=== PATIENT | female | born 1955 | race Caucasian/White ===

== ENCOUNTER 2017-11-28 14:42 | Observation (INO) | payer MEDICARE ==
[2017-11-28] MEDS ORDERED: HEPARIN SODIUM,PORCINE 5,000 UNIT/ML 1 ML VIAL IV ONE (15:10)
[2017-11-28] MEDS ORDERED: NITROGLYCERIN OINT 1 INCH/GM PACKET TOPICAL STA (15:12)
--- NOTE | 2017-11-28 15:15 | ED ---
General Adult HPI - General Chief complaint: Recheck/Abnormal Lab/Rx Stated complaint: Arm numbness Time Seen by Provider: 11/28/17 14:45 Source: patient, EMS, RN notes reviewed Mode of arrival: EMS Limitations: no limitations - History of Present Illness Initial comments: This is a 62-year-old female presents emergency Department complaining of left shoulder pain and tingling going down the right arm. Patient saw her primary medical care doctor yesterday and was told to go to the emergency department she did not go to the emergency department until today. Patient was worked up at [facility] they wanted to transfer the patient here. Patient states in the last few hours she has had some chest heaviness. Patient denies any shortness of breath patient denies any diaphoresis or nausea. Patient states she does have some epigastric fullness which is unusual for her. Patient states she is hypertensive and has high cholesterol. Patient states she also smokes. Patient is currently chest pain-free - Related Data Home Medications Medication Instructions Recorded Confirmed Atorvastatin [Lipitor] 20 mg PO DAILY 11/28/17 11/28/17 Cholecalciferol [Vitamin D3] 1,000 unit PO BID 11/28/17 11/28/17 Gabapentin [Neurontin] 600 mg PO TID 11/28/17 11/28/17 HYDROcodone/APAP 10-325MG [[place] 1 tab PO Q4-6H PRN 11/28/17 11/28/17 10-325] Lisinopril-Hctz 20-25 mg 1 tab PO DAILY 11/28/17 11/28/17 [Zestoretic 20-25] Magnesium 200 mg PO DAILY 11/28/17 11/28/17 Meloxicam [Mobic] 15 mg PO DAILY 11/28/17 11/28/17 Potassium 99 mg PO DAILY 11/28/17 11/28/17 Allergies Allergy/AdvReac Type Severity Reaction Status Date / Time No Known Allergies Allergy Verified 11/28/17 14:43 Review of Systems ROS Statement: Those systems with pertinent positive or pertinent negative responses have been documented in the HPI. ROS Other: All systems not noted in ROS Statement are negative. Past Medical History Past Medical History: COPD, Hyperlipidemia, Hypertension Additional Past Medical History / Comment(s): Arthritis, back pain History of Any Multi-Drug Resistant Organisms: None Reported Past Surgical History: Appendectomy, Bladder Surgery, Tubal Ligation Past Psychological History: No Psychological Hx Reported Smoking Status: Current every day smoker Past Alcohol Use History: None Reported Past Drug Use History: None Reported General Exam - General Exam Comments Initial Comments: GENERAL: Patient is well-developed and well-nourished. Patient is nontoxic and well- hydrated and is in mild distress. ENT: Neck is soft and supple. No significant lymphadenopathy is noted. Oropharynx is clear. Moist mucous membranes. Neck has full range of motion without eliciting any pain. EYES: The sclera were anicteric and conjunctiva were pink and moist. Extraocular movements were intact and pupils were equal round and reactive to light. Eyelids were unremarkable. PULMONARY: Unlabored respirations. Good breath sounds bilaterally. No audible rales rhonchi or wheezing was noted. CARDIOVASCULAR: There is a regular rate and rhythm without any murmurs gallops or rubs. ABDOMEN: Soft and nontender with normal bowel sounds. No palpable organomegaly was noted. There is no palpable pulsatile mass. SKIN: Skin is clear with no lesions or rashes and otherwise unremarkable. NEUROLOGIC: Patient is alert and oriented x3. Cranial nerves II through XII are grossly intact. Motor and sensory are also intact. Normal speech, volume and content. Symmetrical smile. MUSCULOSKELETAL: Normal extremities with adequate strength and full range of motion. No lower extremity swelling or edema. No calf tenderness. LYMPHATICS: No significant lymphadenopathy is noted PSYCHIATRIC: Normal psychiatric evaluation. Normal interpersonal interactions appears functionally intact in deals appropriately with others. No signs of depression. No signs of anxiety. Limitations: no limitations Course Vital Signs 11/28/17 11/28/17 14:43 16:06 Temperature 98.3 F Pulse Rate 80 72 Respiratory 18 18 Rate Blood Pressure 116/65 95/52 O2 Sat by Pulse 93 L 95 Oximetry Medical Decision Making - Medical Decision Making EKG shows a normal sinus rhythm at 70 bpm HI interval is 170 [place] is 88 QT interval 390 QTC is 444. Patient's EKG shows no ST segment elevation or depression or T wave abnormalities are noted. I reviewed the patient's chest x-ray from the other hospital showed no acute abnormality. I repeated the troponin troponin was normal. Patient was chest pain-free at this time. I spoke with Dr. Lisa I admitted the patient I continue the heparin for the aspirin before and the Nitropaste on the floor. I consult to cardiology. - Lab Data Lab Results 11/28/17 Range/Units 15:18 Troponin I <0.012 (0.000-0.034) ng/mL Disposition Clinical Impression: Unstable angina, Right shoulder pain Disposition: ADMITTED IP TO THIS HOSP Referrals: Danilo Cote MD [Primary Care Provider] - 1-2 days Time of Disposition: 16:19
[2017-11-28] MEDS: HEPARIN SOD,PORK IN 0.45% NACL 25,000 UNIT in 0.45% NACL 1 500ML.BAG IV SCH (15:30)
[2017-11-28] MEDS ORDERED: HYDROcodone/APAP 10-325MG 1 EACH TAB PO ONE (15:44)
[2017-11-28] MEDS ORDERED: GABAPENTIN 300 MG CAP PO STA (15:45)
[2017-11-28] MEDS ORDERED: NITROGLYCERIN SL TABS 0.4 MG TAB SUBLINGUAL PRN (16:20)
[2017-11-28] MEDS ORDERED: SODIUM CHLORIDE 0.9% 500 ML IV STA (16:46)
[2017-11-28] MEDS: NITROGLYCERIN OINT 1 INCH/GM PACKET TOPICAL SCH (18:12)
[2017-11-28] MEDS ORDERED: SODIUM CHLORIDE 0.9% 1,000 ML IV ONE (18:48)
[2017-11-28] MEDS ORDERED: SODIUM CHLORIDE 0.9% 500 ML IV ONE (18:48)
--- NOTE | 2017-11-28 19:07 | XR ---
EXAMINATION TYPE: XR chest 2V DATE OF EXAM: 11/28/2017 COMPARISON: Outside chest x-ray earlier today HISTORY: Right arm and shoulder pain with hypotension and numbness. TECHNIQUE: Frontal and lateral views of the chest are obtained. FINDINGS: There is chronic parenchymal change without suspicious focal air space opacity, pleural ef fusion, or pneumothorax seen. The cardiac silhouette size is within normal limits. Moderate multilev el spurring in thoracic spine is present. IMPRESSION: Chronic changes without suspicious acute pulmonary process.
[2017-11-28] MEDS: SODIUM CHLORIDE 0.9% 1,000 ML IV SCH (21:00)
[2017-11-28 21:40] LABS: Creatine Kinase 65 U/L (30-135)
[2017-11-28 21:53] LABS: Creatine Kinase MB 0.4 ng/mL (0.0-2.4); Troponin I <0.012 ng/mL (0.000-0.034)
[2017-11-28] MEDS ORDERED: HEPARIN SODIUM,PORCINE 5,000 UNIT/ML 1 ML VIAL IV STA (23:02)
[2017-11-29] MEDS ORDERED: GABAPENTIN 300 MG CAP PO SCH
[2017-11-29] MEDS: NITROGLYCERIN OINT 1 INCH/GM PACKET TOPICAL SCH ×3 (00:22→10:45)
[2017-11-29 03:49] LABS: Basophils % (A) 1 %; Eosinophils # (A) 0.2 k/uL (0-0.7); Eosinophils % (A) 2 %; Lymphocytes # (A) 3.7 k/uL (1.0-4.8); Lymphocytes % (A) 51 %; MCH 29.8 pg (25.0-35.0); MCHC 32.4 g/dL (31.0-37.0); Mean Platelet Volume 7.5; Monocytes # (A) 0.4 k/uL (0-1.0); Monocytes % (A) 5 %; Neutrophils # (A) 2.8 k/uL (1.3-7.7); Neutrophils % (A) 39 %; Platelet Count 180 k/uL (150-450); RBC 4.35 m/uL (3.80-5.40); RDW 13.3 % (11.5-15.5); WBC 7.1 k/uL (3.8-10.6)
[2017-11-29 04:14] LABS: Creatine Kinase 65 U/L (30-135)
[2017-11-29 04:27] LABS: Creatine Kinase MB 0.5 ng/mL (0.0-2.4); Troponin I <0.012 ng/mL (0.000-0.034)
[2017-11-29 04:29] LABS: ALT 24 U/L (9-52); AST 30 U/L (14-36); Albumin 3.6 g/dL (3.5-5.0); Alkaline Phosphatase 81 U/L (38-126); Anion Gap 11 mmol/L; Blood Urea Nitrogen 19 mg/dL (7-17); Calcium 9.1 mg/dL (8.4-10.2); Carbon Dioxide 28 mmol/L (22-30); Chloride 105 mmol/L (98-107); Cholesterol 116 mg/dL (<200); Glucose 85 mg/dL (74-99); HDL Cholesterol 43 mg/dL (40-60); LDL Cholesterol,Calculated 52 mg/dL (0-99); Sodium 144 mmol/L (137-145); Total Bilirubin 0.5 mg/dL (0.2-1.3); Total Protein 6.3 g/dL (6.3-8.2); Triglycerides 106 mg/dL (<150)
[2017-11-29] MEDS: SODIUM CHLORIDE 0.9% 1,000 ML IV SCH ×3 (06:52→16:23)
[2017-11-29] MEDS: GABAPENTIN 300 MG CAP PO SCH ×3 (08:33→20:37)
[2017-11-29] MEDS: MELOXICAM 7.5 MG TAB PO SCH (08:34)
[2017-11-29] MEDS: ATORVASTATIN 20 MG TAB PO SCH (08:34)
[2017-11-29] MEDS: POTASSIUM CHLORIDE ER 10 MEQ TAB.ER.PRT PO SCH (08:34)
[2017-11-29] MEDS: MAGNESIUM OXIDE 400 MG TAB PO SCH (08:35)
[2017-11-29] MEDS: CHOLECALCIFEROL 1,000 UNIT TAB PO SCH ×2 (08:35→16:23)
[2017-11-29] MEDS ORDERED: ASPIRIN 325 MG TAB PO SCH (09:00)
[2017-11-29] MEDS: HYDROcodone/APAP 10-325MG 1 EACH TAB PO PRN ×2 (10:01→20:37)
[2017-11-29] MEDS: IPRATROPIUM 0.5 MG/2.5 ML NEBU INHALATION SCH ×4 (10:08→19:46)
--- NOTE | 2017-11-29 10:18 | P.HPIM ---
History of Present Illness H&P Date: 11/28/17 Chief Complaint: Transfer from [facility] for right arm pain. Ms. Avila is a 62 y/o female with the PMH of COPD, hypertension, hyperlipidemia who went to [facility] this morning because of right arm tingling and heaviness. Patient states that she was at her primary care physician's office couple of days back and was suggested that she be evaluated in the ER for her right arm and shoulder heaviness. Patient had a CT of her head and neck at the [facility] that was within normal limits. As she complained that her pain has been radiating to her chest she was transferred for further evaluation here. Currently the patient is in the ED, I was called by the nurse that the patient' s blood pressure went as low as 80 x 60 and so she has been getting IV normal saline of 500 mL after which her blood pressure was still low. Patient had the Nitropatch on earlier that was removed now. Patient is completely asymptomatic - she denies having any chest pain, dizziness, lightheadedness. Patient also states that the tingling and numbness of her right arm is not there anymore. Patient is getting 1 more liter of IV normal saline bolus. Patient states that her blood pressure is under good control and most of the times it is 110/ 70-80's with medications. Patient denies having any abdominal pain, nausea or vomiting. Patient has been started on a IV heparin drip. Review of Systems REVIEW OF SYSTEMS: PSYCH: No anxiety or depression NEURO:No c/o weakness of the extremties, No facial droop, No speech abnormalities. VASCULAR: no edema HEMATOLOGIC: No history of easy bleeding and bruising . RESPIRATORY: No cough, No SOB, No chest discomfort. INTEGUMENT: no rashes OPHTHALMOLOGIC: No blurry vision and no eye discharge : No dysuria or hematuria [employer]PER[employer]: No bleeding PV CARDIAC: No chest pain , shortness of breath , paroxysmal nocturnal dyspnea MUSCULOSKELETAL : No Aches or pains in the joints or muscles. GI: No abdominal pain, Nausea or vomiting. No constipation or diarrhea. Past Medical History Past Medical History: COPD, Hyperlipidemia, Hypertension Additional Past Medical History / Comment(s): Arthritis, back pain, hernia lower abd, rt lazy eye, lower bridge,"buzzing in ears", stress test 2009 History of Any Multi-Drug Resistant Organisms: None Reported Past Surgical History: Appendectomy, Bladder Surgery, Tubal Ligation Past Anesthesia/Blood Transfusion Reactions: Previous Problems w/ Anesthesia Additional Past Anesthesia/Blood Transfusion Reaction / Comment(s): "bp bottoms out with aa", "i don't like tight spots" Smoking Status: Current every day smoker - Past Family History Mother Family Medical History: Cancer, Hypertension, Thyroid Disorder Father Family Medical History: Myocardial Infarction ([place]) Medications and Allergies Home Medications Medication Instructions Recorded Confirmed Type Atorvastatin [Lipitor] 20 mg PO DAILY 11/28/17 11/28/17 History Cholecalciferol [Vitamin D3] 1,000 unit PO BID 11/28/17 11/28/17 History Gabapentin [Neurontin] 600 mg PO TID 11/28/17 11/28/17 History HYDROcodone/APAP 10-325MG [Bly 1 tab PO Q4-6H PRN 11/28/17 11/28/17 History 10-325] Lisinopril-Hctz 20-25 mg 1 tab PO DAILY 11/28/17 11/28/17 History [Zestoretic 20-25] Magnesium 200 mg PO DAILY 11/28/17 11/28/17 History Meloxicam [Mobic] 15 mg PO DAILY 11/28/17 11/28/17 History Potassium 99 mg PO DAILY 11/28/17 11/28/17 History Allergies Allergy/AdvReac Type Severity Reaction Status Date / Time No Known Allergies Allergy Verified 11/28/17 14:43 Physical Exam Vitals: Vital Signs Temp Pulse Resp BP Pulse Ox 11/28/17 19:14 65 18 90/52 98 11/28/17 18:24 70 18 92/50 11/28/17 18:18 72 18 90/50 11/28/17 18:10 70 18 86/52 11/28/17 17:33 72 18 113/52 95 11/28/17 16:45 98.5 F 73 18 93/48 94 L 11/28/17 16:06 72 18 95/52 95 11/28/17 14:43 98.3 F 80 18 116/65 93 L Intake and Output 11/28/17 11/28/17 11/28/17 06:59 14:59 22:59 Other: Weight 113.852 kg GENERAL EXAM GEN. APPEARANCE: alert, in no apparent distress, obese HEAD EXAM: atraumatic, normocephalic, normal inspection EYE EXAM: normal appearance, PERRL, EOMI. Absent: scleral icterus, conjunctival injection, periorbital swelling ENT EXAM: normal exam, mucous membranes moist NECK EXAM: normal inspection. Absent: tenderness, meningismus, full ROM, lymphadenopathy RESPIRATORY EXAM: normal lung sounds bilaterally. Absent: respiratory distress , wheezes, rales, rhonchi, stridor CARDIOVASCULAR EXAM: regular rate, normal rhythm, normal heart sounds. Absent : systolic murmur, diastolic murmur, rubs, gallop, clicks GI/ABDOMINAL EXAM: soft, normal bowel sounds. No guarding or rigidity. Organomegaly difficult to appreciate due to huge body habitus. EXTREMITIES EXAM: normal inspection, full ROM, normal capillary refill. Absent : tenderness, pedal edema, joint swelling, calf tenderness NEUROLOGICAL EXAM: alert, oriented X3, strength is 4/4 in all 4 extremities Right shoulder exam- no swelling no tenderness, range of motion within normal limits. PSYCHIATRIC EXAM: normal affect, normal mood SKIN EXAM: warm, dry, intact, normal color. Absent: rash Assessment and Plan Assessment: ASSESSMENT Right shoulder pain/ tingling numbness - unclear etiology- patient had a CAT scan of the head and neck at [facility] within normal limits and now the patient is completely asymptomatic. It might be an atypical presentation of cardiac chest pain and as the patient has risk factors of hypertension, hyperlipidemia, smoking and obesity- she has been started on IV heparin - she'll be continued and cardiology services have been consulted. We' ll monitor serial troponins and EKGs. Hypotension- can be secondary to the Nitropatch- patient received 1.5 L of IV normal saline and slowly her blood pressure is trending up Hyperlipidemia Nicotine [place] Morbid obesity BMI of 43 Plan: Continue the patient on IV heparin, will closely follow the blood pressure. Patient had a chest x-ray done which was negative for any acute cardiopulmonary process. Further recommendations depending on the progress of the patient.
--- NOTE | 2017-11-29 11:42 | P.CRDCN ---
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 According to the patient, on Tuesday, she developed a discomfort in her right posterior scapula area, she states that she also had some sharp stabbing discomfort in her chest and numbness down her right arm. Initially the patient was in accompanied to the emergency room, however because the symptoms gradually subsided and she decided not to come. She did continue to have mild numbness in her right arm. She went to see her primary care doctor yesterday, told her about the symptoms she was having and was referred to come to the emergency room for further evaluation. EKG on arrival here showed a normal sinus rhythm with inferior Q waves noted. Repeat EKG showed normal sinus rhythm with inferior Q waves and nonspecific ST-T wave changes in the lateral leads. Chest x-ray showed chronic changes without suspicious acute pulmonary process. Blood cell count 7.1, hemoglobin 13, platelet count 180. Sodium 144, potassium 4.0, BUN 19, creatinine 0.7. Troponins negative 3. Blood pressure 97/50, heart rate in the 60s, 93% on room air. At the time of my examination this morning, patient is currently chest pain free, creatinine is stable. Past Medical History Past Medical History: COPD, Hyperlipidemia, Hypertension Additional Past Medical History / Comment(s): Arthritis, back pain, hernia lower abd, rt lazy eye, lower bridge,"buzzing in ears", stress test 2009 History of Any Multi-Drug Resistant Organisms: None Reported Past Surgical History: Appendectomy, Bladder Surgery, Tubal Ligation Past Anesthesia/Blood Transfusion Reactions: Previous Problems w/ Anesthesia Additional Past Anesthesia/Blood Transfusion Reaction / Comment(s): "bp bottoms out with aa", "i don't like tight spots" Smoking Status: Current every day smoker - Past Family History Mother Family Medical History: Cancer, Hypertension, Thyroid Disorder Father Family Medical History: Myocardial Infarction ([place]) Medications and Allergies Home Medications Medication Instructions Recorded Confirmed Type Atorvastatin [Lipitor] 20 mg PO DAILY 11/28/17 11/28/17 History Cholecalciferol [Vitamin D3] 1,000 unit PO BID 11/28/17 11/28/17 History Gabapentin [Neurontin] 600 mg PO TID 11/28/17 11/28/17 History HYDROcodone/APAP 10-325MG [[place] 1 tab PO Q4-6H PRN 11/28/17 11/28/17 History 10-325] Lisinopril-Hctz 20-25 mg 1 tab PO DAILY 11/28/17 11/28/17 History [Zestoretic 20-25] Magnesium 200 mg PO DAILY 11/28/17 11/28/17 History Meloxicam [Mobic] 15 mg PO DAILY 11/28/17 11/28/17 History Potassium 99 mg PO DAILY 11/28/17 11/28/17 History Tiotropium 18 Mcg/Puff [Spiriva] 2 puff INHALATION DAILY 11/29/17 11/29/17 History Allergies Allergy/AdvReac Type Severity Reaction Status Date / Time No Known Allergies Allergy Verified 11/28/17 14:43 Physical Exam Vitals: Vital Signs Temp Pulse Pulse Resp BP BP Pulse Ox 11/29/17 11:27 97.6 F 61 18 100/54 94 L 11/29/17 10:15 70 11/29/17 10:10 68 11/29/17 08:00 96.9 F L 66 16 97/53 93 L 11/29/17 04:00 72 18 104/65 94 L 11/29/17 03:00 70 18 103/55 100 11/29/17 02:01 65 110/56 11/29/17 00:00 65 18 93/54 97 11/28/17 23:06 68 18 102/62 98 11/28/17 22:36 67 18 92/51 11/28/17 22:12 70 18 88/56 96 11/28/17 20:15 98.6 F 67 18 85/46 97 11/28/17 19:54 69 18 99/56 97 11/28/17 19:14 65 18 90/52 98 11/28/17 18:24 70 18 92/50 11/28/17 18:18 72 18 90/50 11/28/17 18:10 70 18 86/52 11/28/17 17:33 72 18 113/52 95 11/28/17 16:45 98.5 F 73 18 93/48 94 L 11/28/17 16:06 72 18 95/52 95 11/28/17 14:43 98.3 F 80 18 116/65 93 L Intake and Output 11/28/17 11/29/17 11/29/17 22:59 06:59 14:59 Intake Total 150 Balance 150 Intake: Intake, IV Titration 150 Amount Heparin Sod,Pork in 0.45% 150 NaCl 25,000 unit In 0.45 % NaCl 1 500ml.bag @ 8. 784 UNITS/KG/HR 20 mls/hr IV .Q24H [facility] Rx#: [id number] Other: Voiding Method Bedside Commode # Voids 1 # Bowel Movements 1 Weight 119.5 kg PHYSICAL EXAMINATION: HEENT: Head is atraumatic, normocephalic. Pupils equal, round. Neck is supple. There is no elevated jugular venous pressure. HEART EXAMINATION: Heart S1 and S2 systolic murmur is heard CHEST EXAMINATION: Lungs are clear with some fine expiratory wheezes. ABDOMEN: Soft, obese, nontender. Bowel sounds are heard. No organomegaly noted. EXTREMITIES: 2+ peripheral pulses with no evidence of peripheral edema and no calf tenderness noted. NEUROLOGIC patient is awake, alert and oriented -3. . Results 11/29/17 03:25 11/29/17 03:25 Cardiac Enzymes 11/28/17 11/28/17 11/29/17 Range/Units 15:18 21:05 03:25 AST (14-36) U/L CK-MB (CK-2) 0.4 0.5 (0.0-2.4) ng/mL Troponin I <0.012 <0.012 <0.012 (0.000-0.034) ng/mL 11/29/17 Range/Units 03:25 AST 30 (14-36) U/L CK-MB (CK-2) (0.0-2.4) ng/mL Troponin I (0.000-0.034) ng/mL Coagulation 11/28/17 11/29/17 Range/Units 21:05 05:38 APTT 32.9 H 51.5 H (22.0-30.0) sec Lipids 11/29/17 Range/Units 03:25 Triglycerides 106 (<150) mg/dL Cholesterol 116 (<200) mg/dL HDL Cholesterol 43 (40-60) mg/dL CBC 11/29/17 Range/Units 03:25 WBC 7.1 (3.8-10.6) k/uL RBC 4.35 (3.80-5.40) m/uL Hgb 13.0 (11.4-16.0) gm/dL Hct 40.0 (34.0-46.0) % Plt Count 180 (150-450) k/uL Comprehensive Metabolic Panel 11/29/17 Range/Units 03:25 Sodium 144 (137-145) mmol/L Potassium 4.0 (3.5-5.1) mmol/L Chloride 105 (98-107) mmol/L Carbon Dioxide 28 (22-30) mmol/L BUN 19 H (7-17) mg/dL Creatinine 0.78 (0.52-1.04) mg/dL Glucose 85 (74-99) mg/dL Calcium 9.1 (8.4-10.2) mg/dL AST 30 (14-36) U/L ALT 24 (9-52) U/L Alkaline Phosphatase 81 (38-126) U/L Total Protein 6.3 (6.3-8.2) g/dL Albumin 3.6 (3.5-5.0) g/dL Current Medications Generic Name Dose Route Start Last Admin Trade Name Freq PRN Reason Stop Dose Admin Hydrocodone Bitart/Acetaminophen 1 each 11/28/17 16:36 11/29/17 10:01 [place] 10 PO 1 each Q6HR PRN Administration Fever and/or Moderate Pain Aspirin 325 mg 11/29/17 09:00 11/29/17 08:33 Aspirin PO 325 mg DAILY ELIZABETH Administration Atorvastatin Calcium 20 mg 11/29/17 09:00 11/29/17 08:34 Lipitor PO 20 mg DAILY ELIZABETH Administration Cholecalciferol 1,000 unit 11/29/17 09:00 11/29/17 08:35 Vitamin D3 PO 1,000 unit BID-W/MEALS ELIZABETH Administration Gabapentin 600 mg 11/29/17 09:00 11/29/17 08:33 Neurontin PO 600 mg TID ELIZABETH Administration Heparin Sodium/Sodium Chloride 500 mls @ 20 mls/hr 11/28/17 15:15 11/28/17 23 :00 25,000 unit/ Sodium Chloride IV 11.784 units/kg/hr .Q24H ELIZABETH 26.83 mls/hr Protocol Titration 8.784 UNITS/KG/HR Sodium Chloride 1,000 mls @ 100 mls/hr 11/28/17 21:00 11/29/17 10:49 Saline 0.9% IV Not Given .Q10H ELZIABETH Ipratropium [place] 0.5 mg 11/29/17 08:00 11/29/17 11:10 Atrovent Nebulized INHALATION Not Given RT-QID [facility] Magnesium Oxide 200 mg 11/29/17 09:00 11/29/17 08:35 Mag-Ox PO 200 mg DAILY ELIZABETH Administration Meloxicam 15 mg 11/29/17 09:00 11/29/17 08:34 Mobic PO 15 mg DAILY ELIZABETH Administration Nitroglycerin 1 inch 11/28/17 18:00 11/29/17 10:45 Nitro-Bid Oint TOPICAL Not Given Q6HR [facility] Nitroglycerin 0.4 mg 11/28/17 16:20 Nitrostat SUBLINGUAL Q5M PRN Chest Pain Potassium Chloride 5 meq 11/29/17 09:00 11/29/17 08:34 K-Dur 10 PO 5 meq DAILY ELIZABETH Administration Intake and Output 11/28/17 11/29/17 11/29/17 22:59 06:59 14:59 Intake Total 150 Balance 150 Intake: Intake, IV Titration 150 Amount Heparin Sod,Pork in 0.45% 150 NaCl 25,000 unit In 0.45 % NaCl 1 500ml.bag @ 8. 784 UNITS/KG/HR 20 mls/hr IV .Q24H [facility] Rx#: [id number] Other: Voiding Method Bedside Commode # Voids 1 # Bowel Movements 1 Weight 119.5 kg 11/29/17 03:25 11/29/17 03:25 EKG Interpretations (text) EKG shows a normal sinus rhythm with inferior Q waves and nonspecific ST-T wave changes in the lateral leads. Assessment and Plan Plan: Assessment and plan #1 Chest pain with some atypical features for acute coronary syndrome. Troponins negative 3, EKG shows normal sinus rhythm with nonspecific ST-T wave changes and inferior Q waves #2 borderline diabetes #3 hypertension #4 hyperlipidemia #5 obesity #6 strong family history of premature coronary artery disease #7 COPD #8 nicotine dependence Plan Will obtain an echocardiogram with Doppler study. Decrease aspirin 81 mg daily , obtain d-dimer, if negative discontinue IV heparin. Patient has been advised to undergo further testing to rule out underlying coronary artery disease. Further recommendations based on those findings and patient's clinical course. DNP note has been reviewed, I agree with a documented findings and plan of care. Patient was seen and examined.
--- NOTE | 2017-11-29 11:43 | ECHOF ---
Referral Reason:atypical CP/hypotension MEASUREMENTS -------- HEIGHT: 162.6 cm WEIGHT: 119.3 kg BP: 104/65 RVIDd: 3.2 cm (< 3.3) IVSd: 1.4 cm (0.6 - 1.1) LVIDd: 4.9 cm (3.9 - 5.3) LVPWd: 1.1 cm (0.6 - 1.1) IVSs: 1.8 cm LVIDs: 3.0 cm LVPWs: 2.1 cm LAESV Index (A-L): 28.85 ml/m Ao Diam: 3.6 cm (2.0 - 3.7) AV Cusp: 1.9 cm (1.5 - 2.6) LA Diam: 3.9 cm (2.7 - 3.8) MV EXCURSION: 16.226 mm (> 18.000) MV EF SLOPE: 86 mm/s (70 - 150) EPSS: 0.4 cm MV E Noe: 0.53 m/s MV DecT: 310 ms MV A Noe: 0.78 m/s MV E/A Ratio: 0.68 FINDINGS -------- Sinus rhythm. Morbid Obesity The left ventricular size is normal. There is mild concentric left ventricular hypertrophy. Overa ll left ventricular systolic function is normal with, an EF between 55 - 60 %. The right ventricle is mildly enlarged. The left atrial size is normal. Normal LA size by volume 22+/-6 ml/m2. The right atrial size is normal. 5.0mg OF [place] UTLIZED: 2 OR MORE WALL SEGMENTS NOT VISUALIZED. The aortic valve was not well visualized. Mild mitral regurgitation is present. The tricuspid valve was not well visualized. Mild tricuspid regurgitation present. There is no ev idence of pulmonary hypertension. The right ventricular systolic pressure, as measured by Doppler, is {RVSP}. The pulmonic valve was not well visualized. The aortic root size is normal. There is no pericardial effusion. CONCLUSIONS -------- 1. Morbid Obesity 2. The left ventricular size is normal. 3. There is mild concentric left ventricular hypertrophy. 4. Overall left ventricular systolic function is normal with, an EF between 55 - 60 %. 5. The right ventricle is mildly enlarged. 6. The left atrial size is normal. 7. Normal LA size by volume 22+/-6 ml/m2. 8. 5.0mg OF [place] UTLIZED: 2 OR MORE WALL SEGMENTS NOT VISUALIZED. 9. The aortic valve was not well visualized. 10. Mild mitral regurgitation is present. 11. The tricuspid valve was not well visualized. 12. Mild tricuspid regurgitation present. 13. There is no evidence of pulmonary hypertension. 14. The right ventricular systolic pressure, as measured by Doppler, is {RVSP}. 15. The pulmonic valve was not well visualized. 16. The aortic root size is normal. 17. There is no pericardial effusion. TECHNICAL BUYER: Korina Benz RDCS
[2017-11-29] MEDS: HEPARIN SOD,PORK IN 0.45% NACL 25,000 UNIT in 0.45% NACL 1 500ML.BAG IV SCH (16:22)
[2017-11-30] MEDS ORDERED: DOBUTamine DRIP for NUC MED 250 MG in DEXTROSE/WATER 1 250ML.BAG IV ONE ×2 (05:00→07:47)
[2017-11-30] MEDS: HYDROcodone/APAP 10-325MG 1 EACH TAB PO PRN ×2 (06:29→14:12)
[2017-11-30] MEDS: SODIUM CHLORIDE 0.9% 1,000 ML IV SCH (06:29)
[2017-11-30] MEDS: CHOLECALCIFEROL 1,000 UNIT TAB PO SCH (06:29)
[2017-11-30] MEDS: IPRATROPIUM 0.5 MG/2.5 ML NEBU INHALATION SCH ×3 (07:22→15:07)
[2017-11-30 08:07] VITALS: RESP 18
[2017-11-30] MEDS: ATORVASTATIN 20 MG TAB PO SCH (08:14)
[2017-11-30] MEDS: MAGNESIUM OXIDE 400 MG TAB PO SCH (08:14)
[2017-11-30] MEDS: GABAPENTIN 300 MG CAP PO SCH (08:15)
[2017-11-30] MEDS: MELOXICAM 7.5 MG TAB PO SCH (08:16)
[2017-11-30] MEDS: POTASSIUM CHLORIDE ER 10 MEQ TAB.ER.PRT PO SCH (08:16)
[2017-11-30] MEDS ORDERED: ASPIRIN 81 MG PO SCH (09:00)
--- NOTE | 2017-11-30 10:37 | P.PN ---
Subjective Progress Note Date: 11/29/17 Principal diagnosis: Right Arm pain Ms. Avila is a 62 y/o female with the PMH of COPD, hypertension, hyperlipidemia who went to [facility] this morning because of right arm tingling and heaviness. Patient states that she was at her primary care physician's office couple of days back and was suggested that she be evaluated in the ER for her right arm and shoulder heaviness. Patient had a CT of her head and neck at the [facility] that was within normal limits. As she complained that her pain has been radiating to her chest she was transferred for further evaluation here. Yesterday her BP was running low after the Nitro patch. It was d/c and the pt was given 2 lt of IV fluids after which her BP was better. Cardiology services consulted. REVIEW OF SYSTEMS: NEURO:No c/o weakness of the extremties, No facial droop, No speech abnormalities. VASCULAR: no edema HEMATOLOGIC: No history of easy bleeding and bruising . RESPIRATORY: No cough, No SOB, No chest discomfort. : No dysuria or hematuri CARDIAC: No chest pain , shortness of breath , paroxysmal nocturnal dyspnea GI: No abdominal pain, Nausea or vomiting. No constipation or diarrhea. Objective - Vital Signs Vital signs: Vital Signs Temp 97.3 F L 11/29/17 20:25 Pulse 71 11/29/17 20:25 Resp 18 11/29/17 20:25 BP 90/53 11/29/17 20:25 Pulse Ox 95 11/29/17 20:25 Intake & Output 11/29/17 11/29/17 11/30/17 06:59 18:59 06:59 Intake Total 150 350 Output Total 300 Balance 150 50 Weight 119.5 kg Intake: Intake, IV Titration 150 350 Amount Heparin Sod,Pork in 0.45% 150 350 NaCl 25,000 unit In 0.45 % NaCl 1 500ml.bag @ 8. 784 UNITS/KG/HR 20 mls/hr IV .Q24H [facility] Rx#: [id number] Output: Urine 300 Other: Voiding Method Bedside Commode Toilet # Voids 1 1 2 # Bowel Movements 1 - Exam GEN. APPEARANCE: alert, in no apparent distress, obese HEAD EXAM: atraumatic, normocephalic, normal inspection EYE EXAM: normal appearance, PERRL, EOMI. Absent: scleral icterus, conjunctival injection, periorbital swelling ENT EXAM: normal exam, mucous membranes moist NECK EXAM: normal inspection. Absent: tenderness, meningismus, full ROM, lymphadenopathy RESPIRATORY EXAM: normal lung sounds bilaterally. Absent: respiratory distress , wheezes, rales, rhonchi, stridor CARDIOVASCULAR EXAM: regular rate, normal rhythm, normal heart sounds. Absent : systolic murmur, diastolic murmur, rubs, gallop, clicks GI/ABDOMINAL EXAM: soft, normal bowel sounds. No guarding or rigidity. Organomegaly difficult to appreciate due to huge body habitus. EXTREMITIES EXAM: normal inspection, full ROM, normal capillary refill. Absent : tenderness, pedal edema, joint swelling, calf tenderness NEUROLOGICAL EXAM: alert, oriented X3, strength is 4/4 in all 4 extremities Right shoulder exam- no swelling no tenderness, range of motion within normal limits. PSYCHIATRIC EXAM: normal affect, normal mood SKIN EXAM: warm, dry, intact, normal color. Absent: rash - Labs CBC & Chem 7: 11/29/17 03:25 11/29/17 03:25 Labs: Abnormal Lab Results - Last 24 Hours (Table) 11/29/17 11/29/17 Range/Units 03:25 05:38 APTT 51.5 H (22.0-30.0) sec BUN 19 H (7-17) mg/dL Assessment and Plan Assessment: SSESSMENT Right shoulder pain/ tingling numbness - unclear etiology- patient had a CAT scan of the head and neck at [facility] within normal limits and now the patient is completely asymptomatic. It might be an atypical presentation of cardiac chest pain and as the patient has risk factors of hypertension, hyperlipidemia, smoking and obesity- she was on IV heparin - Serial troponins and EKGs WNL. D Dimer - negative , so IV heparin was d/c. Stress echo planned for tomorrow. Hypotension- can be secondary to the Nitropatch- patient received 1.5 L of IV normal saline and slowly her blood pressure is trending up Hyperlipidemia Nicotine [place] Morbid obesity BMI of 43 Plan: Heparin was d/c. Pt is completely asymptomatic now. Stress echo tomorrow. Further recommendations depending on the progress of the patient.
--- NOTE | 2017-11-30 11:42 | P.PN ---
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 According to the patient, on Tuesday, she developed a discomfort in her right posterior scapula area, she states that she also had some sharp stabbing discomfort in her chest and numbness down her right arm. Initially the patient was in accompanied to the emergency room, however because the symptoms gradually subsided and she decided not to come. She did continue to have mild numbness in her right arm. She went to see her primary care doctor yesterday, told her about the symptoms she was having and was referred to come to the emergency room for further evaluation. EKG on arrival here showed a normal sinus rhythm with inferior Q waves noted. Repeat EKG showed normal sinus rhythm with inferior Q waves and nonspecific ST-T wave changes in the lateral leads. Chest x-ray showed chronic changes without suspicious acute pulmonary process. Blood cell count 7.1, hemoglobin 13, platelet count 180. Sodium 144, potassium 4.0, BUN 19, creatinine 0.7. Troponins negative 3. Blood pressure 97/50, heart rate in the 60s, 93% on room air. At the time of my examination this morning, patient is currently chest pain free, creatinine is stable. 11/30/2017 Patient seen and examined this morning, denies any chest pain, breathing is stable. Echocardiogram with Doppler study was performed which revealed an ejection fraction of 55-60%. Patient scheduled today to undergo dobutamine echocardiographic study. Blood pressure this morning 106/60 in the left arm, 105/50 in the right arm. If the dobutamine echocardiographic study is negative for reversible ischemia, then from cardiology's perspective she may be able to be discharged home today and we will make her a follow-up appointment in the office post discharge with Dr. VC Harper. Objective - Vital Signs Vital signs: Vital Signs Temp 97 F L 11/30/17 08:00 Pulse 63 11/30/17 08:00 Resp 18 11/30/17 08:00 BP 106/63 11/30/17 08:00 Pulse Ox 96 11/30/17 08:00 Intake & Output 05/01/18 05/02/18 05/02/18 18:59 06:59 18:59 Intake Total 350 Output Total 300 Balance 50 Weight 102.4 kg Intake: Intake, IV Titration 350 Amount Heparin Sod,Pork in 0.45% 350 NaCl 25,000 unit In 0.45 % NaCl 1 500ml.bag @ 8. 784 UNITS/KG/HR 20 mls/hr IV .Q24H [facility] Rx#: [id number] Output: Urine 300 Other: Voiding Method Toilet # Voids 1 3 - Exam PHYSICAL EXAMINATION: HEENT: Head is atraumatic, normocephalic. Pupils equal, round. Neck is supple. There is no elevated jugular venous pressure. HEART EXAMINATION: Heart S1 and S2 systolic murmur is heard CHEST EXAMINATION: Lungs are clear with some fine expiratory wheezes. ABDOMEN: Soft, obese, nontender. Bowel sounds are heard. No organomegaly noted. EXTREMITIES: 2+ peripheral pulses with no evidence of peripheral edema and no calf tenderness noted. NEUROLOGIC patient is awake, alert and oriented -3. . - Labs CBC & Chem 7: 11/29/17 03:25 11/29/17 03:25 Assessment and Plan Plan: Assessment and plan #1 Chest pain with some atypical features for acute coronary syndrome. Troponins negative 3, EKG shows normal sinus rhythm with nonspecific ST-T wave changes and inferior Q waves #2 borderline diabetes #3 hypertension #4 hyperlipidemia #5 obesity #6 strong family history of premature coronary artery disease #7 COPD #8 nicotine dependence Plan Echocardiogram with Doppler study was performed which revealed a normal left ventricular systolic function. Patient underwent dobutamine echocardiographic study today, if negative patient may be able to be discharged from cardiology's perspective. Follow-up appointment with Dr. VC Harper in the office post discharge. DNP note has been reviewed, I agree with a documented findings and plan of care. Patient was seen and examined.
[2017-11-30 11:58] VITALS: PULSE 78
--- NOTE | 2017-11-30 12:17 | ECHOS ---
STRESS ECHOCARDIOGRAM INDICATIONS: Chest pain. BASELINE HEART RATE: 65 BASELINE BLOOD PRESSURE: 151/72 MAXIMUM HEART RATE: 133 MAXIMUM BLOOD PRESSURE: 219/82 85% MPHR: 133 100% MPHR: 156 MAXIMUM STAGE REACHED: 4 TOTAL EXERCISE TIME: 11:30 CLINICAL INFORMATION: STRESS DATA: Pretesting physical examination showed a heart rate of 65, pressure is 151/72 mmHg. Baseline EKG showed sinus mechanism. Dobutamine infusion at a dose of 10 mcg/kg per minute was initiated and increased to 40 mcg/kg per minute per protocol. The max heart rate was 133, which is about 85% of maximum predicted heart rate. Maximum blood pressure was 219/82 mmHg. Clinically, the patient did not have any symptoms of chest pain or discomfort during the testing or in the recovery. The EKG did not show any significant ST or T-wave abnormalities consistent with ischemia. ECHOCARDIOGRAM IMAGES: On echocardiogram images from parasternal long axis view, parasternal short axis view, apical 4 chambers and apical 2 chamber view were obtained as the baseline images, at the peak of the heart rate, as well as on recovery and the echocardiogram images did not show any evidence of wall motion abnormalities consistent with ischemia. CONCLUSION: 1. Normal EKG in response to dobutamine. 2. Normal echocardiogram in response to dobutamine. MMODL / IJN: [id number] /
[2017-11-30 12:47] VITALS: BP 131/87; TEMP 97.4
== END 2017-11-30 15:15 | disposition home or self-care (01) ==
LOC: EC 14:42 → 3OBS 16:20 → 6SEL 21:00
PROVIDERS: ADMIT Internal Medicine; ATTEND Internal Medicine
DX: M79.601 Pain in right arm (principal); R20.2 Paresthesia of skin; R20.0 Anesthesia of skin; R07.89 Other chest pain; I95.9 Hypotension, unspecified; J44.9 Chronic obstructive pulmonary disease, unspecified; I10 Essential (primary) hypertension; E78.5 Hyperlipidemia, unspecified; R73.03 Prediabetes; M19.90 Unspecified osteoarthritis, unspecified site; M54.9 Dorsalgia, unspecified; F17.200 Nicotine dependence, unspecified, uncomplicated; E66.01 Morbid (severe) obesity due to excess calories; Z68.41 Body mass index [BMI] 40.0-44.9, adult; Z82.49 Family history of ischemic heart disease and other diseases of the circulatory system; Z80.9 Family history of malignant neoplasm, unspecified; Z83.49 Family history of other endocrine, nutritional and metabolic diseases; Z79.899 Other long term (current) drug therapy; Z79.1 Long term (current) use of non-steroidal anti-inflammatories (NSAID)
CPT/HCPCS: 99285 ×2; 96376 ×3; 96365 ×2; 96366 ×6; 96361; 36415; 94640 ×4; 94760; 85379; 83880; 80061; 80053; 82550 ×2; 82553 ×2; 84484 ×2; 85025; 85730 ×2; 71046; G0378 ×4; C8929; C8930; J1644 ×3; Q9950; J1250; 93306; 93351

== ENCOUNTER 2024-07-26 07:22 | Day surgery (SDC) | payer MEDICARE ==
[2024-07-23 10:58] VITALS: BMI 41.5
[~2024-07-26 07:22] MED LIST: LIDOCAINE 1% (10MG/ML) FOR IV START INTRADERMA PRN
[2024-07-26 07:53] VITALS: TEMP 98
[2024-07-26] MEDS: LACTATED RINGERS 1,000 ML IV SCH (08:00)
[2024-07-26 08:05] LABS: Glucose,Whole Blood 93 mg/dL (70-110)
[2024-07-26] MEDS ORDERED: LIDOCAINE 1% INJ 10MG/ML (20 ML MDV) ONE (08:18)
[2024-07-26] MEDS ORDERED: PROPOFOL 10 MG/ML 20 ML VIAL IV ONE (08:18)
--- NOTE | 2024-07-26 08:26 | P.PCN ---
Date of Procedure: 07/26/24 Procedure(s) Performed: BRIEF HISTORY: Patient is a 69-year-old, pleasant, white female scheduled for an upper endoscopy as a part evaluation of history of liver cirrhosis/screening for esophageal varices. PROCEDURE PERFORMED: Esophagogastroduodenoscopy with biopsy. PREOPERATIVE DIAGNOSIS: History of liver cirrhosis/screening for esophageal varices. IV sedation per anesthesia. PROCEDURE: After informed consent was obtained, the patient was brought into the endoscopy unit. IV sedation was administered by Anesthesia under continuous monitoring. Initially the Olympus GIF-140 video endoscope was inserted into the mouth. Esophagus intubated without any difficulty. It was gradually advanced into the stomach and duodenum and carefully examined. The bulb and the second part of the duodenum appeared normal. The scope at this time was withdrawn to the stomach, adequately insufflated with air, and upon careful examination, mucosa of the antrum, body, had linear areas of erythema with scattered erosions consistent with gastritis and biopsies were done from this area. Mucosa of the cardia and the fundus appeared normal. No gastric varices seen. The scope was then withdrawn into the esophagus. The GE junction was located at 39 cm from the incisors. The esophagus appeared normal. There were no erosions or ulcerations seen. No evidence of esophageal varices and the patient tolerated the procedure well. IMPRESSION: 1. Mild antral gastritis. 2. No evidence of esophageal or gastric varices. RECOMMENDATIONS: The findings of this examination were discussed with the patient as well as her family. She was advised to follow-up with the biopsy results. Recommended repeat EGD in 2 to 3 years to screen for esophageal varices..
[2024-07-26 08:33] VITALS: RESP 15
[2024-07-26 08:44] VITALS: BP 131/73; PULSE 59
== END 2024-07-26 09:03 | disposition home or self-care (01) ==
LOC: ORWHC2ENDO 07:22
PROVIDERS: ATTEND Internal Medicine Gastroenterology
DX: K74.60 Unspecified cirrhosis of liver (principal); K29.61 Other gastritis with bleeding; K31.89 Other diseases of stomach and duodenum; I10 Essential (primary) hypertension; E78.5 Hyperlipidemia, unspecified; J44.9 Chronic obstructive pulmonary disease, unspecified; M19.90 Unspecified osteoarthritis, unspecified site; Z79.85 Long-term (current) use of injectable non-insulin antidiabetic drugs; Z79.899 Other long term (current) drug therapy
CPT/HCPCS: 43239; J2003; J2704; 88305